=== PATIENT | male | born 1985 | race Caucasian/White ===

== ENCOUNTER 2017-06-06 09:13 | Emergency (ER) | payer OTHER ==
[~2017-06-06] VITALS: Ht 177.8 cm; Wt 81.5 kg
[~2017-06-06 09:13] MED LIST: AMOX875T20 PO; CLIN150 PO; DOXY100T PO; TRAM50 PO; Z.0.NO CURRENT MEDS
[2017-06-06 09:14] VITALS: BP 164/94; PULSE 57; RESP 16; TEMP 99.1; O2SAT 99
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
[2017-06-06] MEDS ORDERED: MAPA500T13 PO (10:32)
[2017-06-06] MEDS ORDERED: IBUP800T23 PO (10:32)
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
== END 2017-06-06 10:45 | disposition home or self-care (01) ==
LOC: NEPK 09:13
DX: S39.012A Strain of muscle, fascia and tendon of lower back, initial encounter (principal); S80.01XA Contusion of right knee, initial encounter; S16.1XXA Strain of muscle, fascia and tendon at neck level, initial encounter; S30.0XXA Contusion of lower back and pelvis, initial encounter; M79.1 Myalgia; V14.4XXA Pedal cycle driver injured in collision with heavy transport vehicle or bus in traffic accident, initial encounter
CPT/HCPCS: 72110; 99283